=== PATIENT | female | born 1985 | race Caucasian/White ===

== ENCOUNTER 2016-09-05 20:50 | Emergency (ER) | payer OTHER ==
[~2016-09-05 20:50] MED LIST: ACID CONTROLLER20 MG PO; ALBUTEROL HFA INH; BENTYL20 M1 PO; BENTYL20 MG PO; DEPAKOTE PO; DEPAKOTE250 MG; EFFEXOR37.5 MG; EFFEXOR75 M2 PO; IMITREX PO; LEVAQUIN750 M1 PO; LEVSIN0.125 M1 PO; MAGIC MOUTHWASH PO; MAXALT MLT5 MG/TAB PO; MUCINEX1200 MG/BO; NO MEDICATIONS; NORCO1 TAB 10/3 PO; PROMETHAZINE W118 M1 PO; TYL325 PO; VOLTAREN75 MG PO; ZEBETA5 M1 PO; ZEGERID 20 MG C1 CAP PO; ZOFRAN ODT4 MG PO
== END 2016-09-05 21:12 | disposition home or self-care (01) ==
LOC: SED 20:50
DX: S81.852A Open bite, left lower leg, initial encounter (principal); F32.9 Major depressive disorder, single episode, unspecified; Z91.041 Radiographic dye allergy status; Z91.013 Allergy to seafood; Z79.899 Other long term (current) drug therapy; Z23 Encounter for immunization; W54.0XXA Bitten by dog, initial encounter; Y92.009 Unspecified place in unspecified non-institutional (private) residence as the place of occurrence of the external cause
CPT/HCPCS: 90471; 90715; 99283

== ENCOUNTER 2017-01-20 18:22 | Emergency (ER) | payer OTHER ==
[2017-01-20] MEDS ORDERED: HYDROCODON-ACE1 EAC7 (18:30)
== END 2017-01-20 19:20 | disposition home or self-care (01) ==
LOC: SED 18:22
DX: S16.1XXA Strain of muscle, fascia and tendon at neck level, initial encounter (principal); S46.812A Strain of other muscles, fascia and tendons at shoulder and upper arm level, left arm, initial encounter; F41.9 Anxiety disorder, unspecified; G43.909 Migraine, unspecified, not intractable, without status migrainosus; Z91.041 Radiographic dye allergy status; Z91.013 Allergy to seafood; X58.XXXA Exposure to other specified factors, initial encounter; Y92.9 Unspecified place or not applicable
CPT/HCPCS: 99283